=== PATIENT | male | born 2005 | race Two or more races ===

== ENCOUNTER 2024-11-02 14:38 | Emergency (ER) | payer MEDICAID, OTHER ==
[~2024-11-02] VITALS: Ht 172.7 cm; Wt 99.6 kg
[2024-11-02 15:49] VITALS: BP 127/70; PULSE 90; RESP 16; TEMP 99.2; O2SAT 99
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
[2024-11-02] MEDS ORDERED: IBUP-1456 PO (17:12)
[2024-11-02] MEDS: IBUPROFEN 800 MG TAB PO ONE (17:23)
== END 2024-11-02 17:46 | disposition home or self-care (01) ==
LOC: ER 14:38
DX: S80.02XA Contusion of left knee, initial encounter (principal); S70.01XA Contusion of right hip, initial encounter; V49.9XXA Car occupant (driver) (passenger) injured in unspecified traffic accident, initial encounter; Y93.89 Activity, other specified; Y92.410 Unspecified street and highway as the place of occurrence of the external cause; Y99.8 Other external cause status
CPT/HCPCS: 73562